=== PATIENT | male | born 1955 | race Caucasian/White ===

== ENCOUNTER 2022-07-13 09:29 | Outpatient (CLI) | payer MEDICARE | END 2022-07-13 09:30 | disposition home or self-care (01) | LOC: CSHMRI 09:29 | PROVIDERS: ATTEND Family Medicine | DX: M79.601 Pain in right arm (principal); M54.16 Radiculopathy, lumbar region; M47.812 Spondylosis without myelopathy or radiculopathy, cervical region; M51.36 Other intervertebral disc degeneration, lumbar region; M48.061 Spinal stenosis, lumbar region without neurogenic claudication | CPT/HCPCS: 72141; 72148 ==